=== PATIENT | female | born 1945 | race Caucasian/White ===

== ENCOUNTER 2018-10-18 11:26 | Emergency (ER) | payer OTHER ==
[~2018-10-18] VITALS: Ht 160 cm; Wt 72.6 kg
[2018-10-18] MEDS ORDERED: CRESTOR10 MG (12:03)
== END 2018-10-18 15:02 | disposition home or self-care (01) ==
LOC: ER 11:26
DX: S83.8X1A Sprain of other specified parts of right knee, initial encounter (principal); S86.811A Strain of other muscle(s) and tendon(s) at lower leg level, right leg, initial encounter; W18.39XA Other fall on same level, initial encounter; Y93.89 Activity, other specified; Y92.832 Beach as the place of occurrence of the external cause; Y99.8 Other external cause status; R60.0 Localized edema